=== PATIENT | male | born 1965 | race Caucasian/White ===

== ENCOUNTER 2020-10-04 14:20 | Inpatient (IN) ==
[2020-10-04] MEDS ORDERED: Naloxone 0.4 MG/ML INJ IVP PRN (17:11)
[2020-10-04] MEDS ORDERED: *HR* Heparin 5,000 UNIT/ML VIAL IVP PRN ×2 (17:14)
[2020-10-04] MEDS: Heparin 25,000UNIT/250ML 1/2NS 25,000 UNIT/250 ML IV.SOLN IVC SCH (18:12)
[2020-10-04] MEDS: Nicotine 21 MG PATCH.TD24 TD SCH (18:43)
[2020-10-04 19:12] LABS: Influenza A PCR Negative (Negative); Influenza B PCR Negative (Negative); Resp. Syncytial Virus PCR Negative (Negative)
[2020-10-04 19:13] LABS: SARS-CoV-2 by PCR (In House) Negative (Negative)
[2020-10-05 01:05] LABS: Basophils # 0.1 K/mcL (0.0-0.2); Basophils % 0.6 %; Eosinophils # 0.4 K/mcL (0.0-0.6); Hematocrit 49.4 % (37.5-50.1); Hemoglobin 15.6 g/dL (12.9-16.9); Immature Granulocytes % 0.5 % (0-4); Lymphocytes # 3.7 K/mcL (0.6-4.6); Lymphocytes % 27.9 %; Mean Corpuscular HGB Conc 31.6 g/dL (31.6-35.5); Mean Corpuscular Hemoglobin 25.3 pg (28.0-33.3); Mean Corpuscular Volume 80.1 fL (83.0-100.0); Mean Platelet Volume 11.1 fL (9.4-12.4); Monocytes # 0.9 K/mcL (0.0-1.3); Monocytes % 6.5 %; Neutrophils # 8.1 K/mcL (1.6-8.9); Platelet Count 279 K/mcL (140-400); Red Blood Count 6.17 M/mcL (4.19-5.50); Red Cell Distribution Width 14.3 % (11.5-14.5); Segmented Neutrophils % 61.5 %; White Blood Count 13.2 K/mcL (4.3-11.1)
[2020-10-05 01:16] LABS: Estimated Average Glucose 117 mg/dl; Hemoglobin A1C 5.7 %
[2020-10-05 01:20] LABS: Chol/HDL Ratio 8.6 (0-4.9); Cholesterol 292 mg/dL (< 200); HDL Cholesterol 34 mg/dL (40-59); Triglycerides 411 mg/dL (< 150)
[2020-10-05 01:21] LABS: BUN/Creatinine Ratio 11 (6-26); Blood Urea Nitrogen 15 mg/dL (6-20); Calcium 9.5 mg/dL (8.6-10.3); Carbon Dioxide 21 mEq/L (23-29); Chloride 104 mEq/L (98-107); Glucose 104 mg/dL (70-105); Osmolality,Calculated 283 (280-300); Potassium 4.2 mEq/L (3.5-5.1); Sodium 136 mEq/L (136-145); eGFR For African Americans > 60 (> 60); eGFR For Non-African Americans 56 (> 60)
[2020-10-05] MEDS: Aspirin Enteric Coated 81 MG Tablet PO SCH (08:37)
[2020-10-05] MEDS: Nicotine 21 MG PATCH.TD24 TD SCH (08:38)
[2020-10-05] MEDS ORDERED: Perflutren Lipid Microsphere 1.3 ML in 0.9 % Sodium Chloride 8.7 ML IVP PRN (08:45)
[2020-10-05] MEDS ORDERED: 0.9 % Sodium Chloride 2,000 ML ONE (09:13)
[2020-10-05] MEDS ORDERED: *HR* Heparin 10,000 UNIT/10 ML VIAL ONE (09:14)
[2020-10-05] MEDS ORDERED: ISOVUE-370 200 ML INFUS..BTL ONE ×2 (09:14→10:21)
[2020-10-05] MEDS ORDERED: Heparin 1,000 UNITS/500 mL 500 ML ONE (09:14)
[2020-10-05] MEDS ORDERED: Nitroglycerin 1,000 MCG/10 ML VIAL IV ONE (09:14)
[2020-10-05] MEDS ORDERED: *HR* FentaNYL (PF) 100 MCG/2 ML VIAL ONE (09:42)
[2020-10-05] MEDS ORDERED: *HR* Midazolam HCl 2 MG/2 ML VIAL ONE (09:42)
[2020-10-05] MEDS ORDERED: Tirofiban 12.5 MG/250ML 12.5 MG/250 ML BAG ONE (10:18)
[2020-10-05] MEDS ORDERED: *HR* Ticagrelor 90 MG TABLET ONE (10:32)
[2020-10-05] MEDS ORDERED: Tirofiban 12.5 MG/250ML 12.5 MG/250 ML BAG IVC SCH (11:00)
[2020-10-05] MEDS: Heparin 25,000UNIT/250ML 1/2NS 25,000 UNIT/250 ML IV.SOLN IVC SCH (12:01)
[2020-10-05] MEDS: *HR* Ticagrelor 90 MG TABLET PO SCH (20:53)
[2020-10-06 01:25] LABS: Basophils # 0.1 K/mcL (0.0-0.2); Basophils % 0.4 %; Eosinophils # 0.2 K/mcL (0.0-0.6); Eosinophils % 1.6 %; Hematocrit 47.4 % (37.5-50.1); Hemoglobin 14.8 g/dL (12.9-16.9); Immature Granulocytes % 0.3 % (0-4); Lymphocytes # 3.1 K/mcL (0.6-4.6); Lymphocytes % 26.4 %; Mean Corpuscular HGB Conc 31.2 g/dL (31.6-35.5); Mean Corpuscular Hemoglobin 25.3 pg (28.0-33.3); Mean Corpuscular Volume 81.2 fL (83.0-100.0); Mean Platelet Volume 11.1 fL (9.4-12.4); Monocytes # 0.9 K/mcL (0.0-1.3); Monocytes % 7.7 %; Neutrophils # 7.4 K/mcL (1.6-8.9); Platelet Count 282 K/mcL (140-400); Red Blood Count 5.84 M/mcL (4.19-5.50); Red Cell Distribution Width 14.4 % (11.5-14.5); Segmented Neutrophils % 63.6 %; White Blood Count 11.6 K/mcL (4.3-11.1)
[2020-10-06 01:46] LABS: BUN/Creatinine Ratio 13 (6-26); Blood Urea Nitrogen 19 mg/dL (6-20); Calcium 9.3 mg/dL (8.6-10.3); Carbon Dioxide 24 mEq/L (23-29); Chloride 100 mEq/L (98-107); Glucose 86 mg/dL (70-105); Osmolality,Calculated 280 (280-300); Potassium 4.3 mEq/L (3.5-5.1); Sodium 134 mEq/L (136-145); eGFR For African Americans > 60 (> 60); eGFR For Non-African Americans 50 (> 60)
[2020-10-06] MEDS: *HR* Ticagrelor 90 MG TABLET PO SCH (08:20)
[2020-10-06] MEDS: Aspirin Enteric Coated 81 MG Tablet PO SCH (08:21)
[2020-10-06] MEDS: Nicotine 21 MG PATCH.TD24 TD SCH (08:21)
[2020-10-06] MEDS ORDERED: BuPROPion XL (24 HR) 150 MG TABLET PO SCH (09:00)
[2020-10-06] MEDS ORDERED: PARoxetine 20 MG TABLET PO SCH (09:00)
[2020-10-06 12:03] VITALS: BP 128/83
[2020-10-06] MEDS ORDERED: *HR* Heparin 5,000 UNIT/ML VIAL SQ SCH (14:00)
== END 2020-10-06 13:29 | disposition home or self-care (01) | DRG 247 ==
LOC: 2ANU → SUATTDRO 16:39
PROVIDERS: ADMIT Internal Medicine; ATTEND Family Medicine

== ENCOUNTER 2021-03-06 12:14 | Observation (INO) ==
[2021-03-06 13:16] LABS: Basophils # 0.1 K/mcL (0.0-0.2); Basophils % 0.7 %; Eosinophils # 0.8 K/mcL (0.0-0.6); Eosinophils % 7.2 %; Hematocrit 45.7 % (37.5-50.1); Hemoglobin 14.6 g/dL (12.9-16.9); Immature Granulocytes % 0.3 % (0-4); Lymphocytes # 3.3 K/mcL (0.6-4.6); Lymphocytes % 31.5 %; Mean Corpuscular HGB Conc 31.9 g/dL (31.6-35.5); Mean Corpuscular Hemoglobin 25.6 pg (28.0-33.3); Mean Corpuscular Volume 80.2 fL (83.0-100.0); Monocytes # 0.6 K/mcL (0.0-1.3); Monocytes % 5.2 %; Neutrophils # 5.8 K/mcL (1.6-8.9); Platelet Count 286 K/mcL (140-400); Red Cell Distribution Width 13.8 % (11.5-14.5); Segmented Neutrophils % 55.1 %; White Blood Count 10.5 K/mcL (4.3-11.1)
[2021-03-06 13:48] LABS: BUN/Creatinine Ratio 14 (6-26); Blood Urea Nitrogen 19 mg/dL (6-20); Calcium 9.8 mg/dL (8.6-10.3); Carbon Dioxide 22 mEq/L (23-29); Chloride 104 mEq/L (98-107); Glucose 97 mg/dL (70-105); Osmolality,Calculated 284 (280-300); Potassium 4.2 mEq/L (3.5-5.1); Sodium 136 mEq/L (136-145); Troponin I < 0.03 ng/mL (< 0.04); eGFR For African Americans > 60 (> 60); eGFR For Non-African Americans 56 (> 60)
[2021-03-06] MEDS ORDERED: Aspirin 81 MG TAB.CHEW PO STA (14:04)
[2021-03-06] MEDS ORDERED: Nitroglycerin 0.4 MG TAB.SUBL SL PRN (14:04)
[2021-03-06] MEDS ORDERED: Naloxone 0.4 MG/ML INJ IVP PRN (15:51)
[2021-03-06] MEDS ORDERED: *HR* OxyCODONE Immed Rel 5 MG TABLET PO PRN (15:51)
[2021-03-06] MEDS ORDERED: *HR* HYDROcodone/Acet 5/325 mg TABLET PO PRN (15:51)
[2021-03-06] MEDS ORDERED: Ondansetron 4 MG/2 ML VIAL IVP PRN (15:51)
[2021-03-06] MEDS: Isosorbide MONOnitrate (24 HR) 60 MG TAB.ER.24H PO SCH (19:01)
[2021-03-06] MEDS: *HR* Heparin 5,000 UNIT/ML VIAL SQ SCH (19:01)
[2021-03-06] MEDS: *HR* Ticagrelor 90 MG TABLET PO SCH (22:21)
[2021-03-07 03:17] LABS: INR 1.1; Prothrombin Time 12.2 Seconds (9.4-12.1)
[2021-03-07 03:20] LABS: Activated Partial Thrombo Time 31.9 Seconds (26.0-36.0)
[2021-03-07 03:38] LABS: Calcium 8.9 mg/dL (8.6-10.3); Magnesium 1.8 mg/dL (1.6-2.6); Phosphorous 4.7 mg/dL (2.7-4.5); Potassium 3.9 mEq/L (3.5-5.1)
[2021-03-07] MEDS ORDERED: Regadenoson 0.4 MG/5 ML SYRINGE IVP ONE (06:23)
[2021-03-07] MEDS ORDERED: PARoxetine 20 MG TABLET PO SCH (09:00)
[2021-03-07] MEDS ORDERED: Aspirin Enteric Coated 81 MG Tablet PO SCH (09:00)
[2021-03-07] MEDS ORDERED: amLODIPine 5 MG TABLET PO SCH (09:00)
[2021-03-07] MEDS ORDERED: BuPROPion XL (24 HR) 150 MG TABLET PO SCH (09:00)
[2021-03-07] MEDS: *HR* Ticagrelor 90 MG TABLET PO SCH (09:09)
[2021-03-07] MEDS: *HR* Heparin 5,000 UNIT/ML VIAL SQ SCH (09:09)
[2021-03-07] MEDS: Isosorbide MONOnitrate (24 HR) 60 MG TAB.ER.24H PO SCH (09:09)
[2021-03-07 11:17] VITALS: BP 132/65
== END 2021-03-07 12:05 | disposition home or self-care (01) ==
LOC: CDU 12:14 → EMEROOARM 12:14 → SUATTDRO 15:54 → CDU 17:03
PROVIDERS: ADMIT Internal Medicine; ATTEND Internal Medicine